=== PATIENT | male | born 1970 | race Caucasian/White ===

== ENCOUNTER 2016-08-30 19:53 | Emergency (ER) | payer OTHER ==
[2016-08-30 19:59] VITALS: BP 148/91; PULSE 97; RESP 16; TEMP 98.7
--- NOTE | 2016-08-30 20:15 | ED ---
Fall HPI - General Chief Complaint: Fall Stated Complaint: Fall [facility] Time Seen by Provider: 08/30/16 20:00 Source: patient, old records reviewed Mode of arrival: ambulatory - History of Present Illness Initial Comments: This is a 45-year-old male with a benign history states she slipped and fell on some ice just prior to admission. He complains of pain to his coccyx he denies any other injuries. No head or neck pain no back pain no loss of function to his upper or lower extremities. He states his coccyx area hurts especially when he gets up from a sitting position. No reported urinary or fecal incontinence. MD Complaint: fall - Related Data Home Medications Medication Instructions Recorded Confirmed ALPRAZolam [Xanax] 0.25 mg PO DAILY PRN 08/30/16 08/30/16 Dextroamphetamine/Amphetamine 30 mg PO QAM 08/30/16 08/30/16 [Adderall Xr] Lisinopril 40 mg PO BID 08/30/16 08/30/16 Multivitamins, Thera [Multivitamin] 1 tab PO DAILY 08/30/16 08/30/16 Sildenafil Citrate [Viagra] 100 mg PO DAILY PRN 08/30/16 08/30/16 buPROPion [Wellbutrin] 150 mg PO QAM 08/30/16 08/30/16 traZODone HCL [Desyrel] 100 mg PO HS 08/30/16 08/30/16 Previous Rx's Medication Instructions Recorded Ibuprofen [Motrin] 800 mg PO Q6HR PRN #20 tab 08/30/16 Allergies Allergy/AdvReac Type Severity Reaction Status Date / Time No Known Allergies Allergy Verified 08/30/16 20:33 Review of Systems ROS Statement: Those systems with pertinent positive or pertinent negative responses have been documented in the HPI. ROS Other: All systems not noted in ROS Statement are negative. Past Medical History Past Medical History: Hyperlipidemia, Hypertension History of Any Multi-Drug Resistant Organisms: None Reported Past Surgical History: No Surgical Hx Reported Past Psychological History: ADD/ADHD Smoking Status: Never smoker Past Alcohol Use History: Occasional Past Drug Use History: None Reported General Exam - General Exam Comments Initial Comments: This is a well-developed well-nourished awake alert oriented 3 male he has a [place] Coma Scale of 15 Limitations: no limitations General appearance: alert, in no apparent distress Head exam: Present: atraumatic, normocephalic, normal inspection Eye exam: Present: normal appearance, PERRL, EOMI. Absent: scleral icterus, conjunctival injection, periorbital swelling Neck exam: Present: normal inspection. Absent: tenderness, meningismus, lymphadenopathy Respiratory exam: Absent: chest wall tenderness Rectal exam: Present: deferred Extremities exam: Present: normal inspection, full ROM, normal capillary refill , other (The tenderness the pelvis to pelvic rock or compressions.). Absent: tenderness, pedal edema, joint swelling, calf tenderness Back exam: Present: normal inspection, other (It is of the coccyx no step-off or crepitation no bruising no abrasions) Neurological exam: Present: alert, oriented X3, CN II-XII intact Psychiatric exam: Present: normal affect, normal mood Skin exam: Present: warm, dry, intact, normal color. Absent: rash Course Vital Signs 08/30/16 19:56 Temperature 98.7 F Pulse Rate 97 Respiratory 16 Rate Blood Pressure 148/91 O2 Sat by Pulse 96 Oximetry Medical Decision Making - Medical Decision Making I did discuss findings with the patient no evidence of any fracture scan x-rays the presentation is consistent with a coccyx contusion we placed on anti- inflammatories. So perform work as tolerated and return when necessary - Radiology Data Radiology results: report reviewed (I did review the imaging and reports no acute findings.), image reviewed Disposition Clinical Impression: Fall, Coccyx contusion Disposition: HOME SELF-CARE Condition: Good Instructions: Contusion in Adults (ED) Prescriptions: Ibuprofen [Motrin] 800 mg PO Q6HR PRN #20 tab PRN Reason: Pain
--- NOTE | 2016-08-30 20:37 | XR ---
Sacrum and coccyx HISTORY: Trauma and pain 3 views of the sacrum and coccyx, no comparisons Bone mineralization, joint spaces and alignment are maintained. Minimal anterolisthesis grade 1 L5-S1 . IMPRESSION: No fracture or dislocation, follow-up as indicated
[2016-08-30] MEDS ORDERED: IBUPROFEN 800 MG TAB PO STA (20:51)
== END 2016-08-30 21:00 | disposition home or self-care (01) ==
LOC: EC 19:53
DX: S30.0XXA Contusion of lower back and pelvis, initial encounter (principal); W00.0XXA Fall on same level due to ice and snow, initial encounter; Z79.899 Other long term (current) drug therapy; I10 Essential (primary) hypertension; F90.9 Attention-deficit hyperactivity disorder, unspecified type
CPT/HCPCS: 72220; 99283

== ENCOUNTER → 2016-09-08 | Outpatient (CLI) | payer OTHER ==
--- NOTE | 2016-09-08 15:22 | CT ---
EXAMINATION TYPE: CT sacrum wo con DATE OF EXAM: 09/08/2016 2:51 PM COMPARISON: NONE HISTORY: tail bone pain post fall CT DLP: 171.2 mGycm Automated exposure control for dose reduction was used. FINDINGS: Spondylolysis of L5 is evident. Some sacroiliac joint degenerative changes noted on the right. No acute coccygeal or sacral fractures are evident. IMPRESSION: NORMAL SACRUM AND COCCYX.
== END | disposition home or self-care (01) ==
LOC: RADCTMAIN 14:23
PROVIDERS: ATTEND Emergency Medicine
DX: S30.0XXA Contusion of lower back and pelvis, initial encounter (principal)
CPT/HCPCS: 72192